=== PATIENT | female | born 1945 | race African-American/Black ===

== ENCOUNTER 2025-02-24 11:21 | Outpatient (REF) | payer MEDICARE, MEDICAID, SELFPAY ==
[2025-02-24 12:52] LABS: MANUAL DIFF FLAG NO
[2025-02-24 13:42] LABS: Hematocrit 40.5 % (37.0-47.0); Hemoglobin 12.9 g/dl (12.0-16.0); Imm Gran Abs Auto 0.02 X10*3/uL (0.00-0.03); Imm Gran Pct Auto 0.3 % (0.0-0.4); Lymphocytes Absolute Auto 2.4 X10*3/uL (1.2-4.9); Mean Corpuscular HGB Conc 31.9 g/dl (31.0-35.0); Mean Corpuscular Hemoglobin 27.9 pg (27.0-33.0); Mean Corpuscular Volume 87.7 fL (80.0-98.0); NRBC Abs Auto 0.000 X10*3/uL (0.0-0.012); NRBC Pct Auto 0.0 /100WBC (0.0-0.2); Platelet Count 275 X10*3/uL (160-400); Red Blood Count 4.62 X10*6/uL (4.20-5.50); White Blood Count 6.8 X10*3/uL (4.8-10.8)
[2025-02-24 14:30] LABS: Alanine Aminotransferase 12 U/L (0-31); Albumin Level 4.5 g/dL (3.5-5.0); Alkaline Phosphatase 66 U/L (39-117); Anion Gap 7 (12-20); Aspartate Amino Transferase 22 U/L (5-31); Blood Urea Nitrogen 13 mg/dL (9-16); Calcium 9.5 mg/dL (8.4-10.2); Carbon Dioxide 30 mmol/L (22-29); Chloride 111 mmol/L (96-108); Estimated Glomerular Filt Rate > 60; Magnesium 2.1 mg/dL (1.6-2.6); Potassium 3.4 mmol/L (3.3-5.1); Sodium 145 mmol/L (135-145); Total Protein 7.7 g/dL (6.5-8.0)
[2025-02-24 14:34] LABS: Microalbum/Creatinine Ratio Ur 10.4 ug/mg cr (<30)
[2025-02-26 14:06] LABS: Alcohol, Ethyl Urine Screen NEGATIVE
[2025-03-02 18:24] LABS: SM/Ribonucleoprotein Ab <1.0 NEG AI (<1.0 NEG); Smith Protein <1.0 NEG AI (<1.0 NEG)
[2025-03-04 14:49] LABS: Anti Nuclear Antibody Screen POSITIVE (NEGATIVE); Anti Nuclear Antibody Titer 1:40 titer
== END 2025-02-24 11:22 | disposition home or self-care (01) ==
LOC: HO.LAB 11:21
PROVIDERS: PCP Internal Medicine; Visit Provider Internal Medicine
DX: I10 Essential (primary) hypertension (principal); E03.9 Hypothyroidism, unspecified; M32.9 Systemic lupus erythematosus, unspecified; D64.9 Anemia, unspecified; I25.10 Atherosclerotic heart disease of native coronary artery without angina pectoris; R42 Dizziness and giddiness; F41.9 Anxiety disorder, unspecified; G47.00 Insomnia, unspecified; Z86.73 Personal history of transient ischemic attack (TIA), and cerebral infarction without residual deficits; Z51.81 Encounter for therapeutic drug level monitoring
CPT/HCPCS: 80053; 80307; 82043; 82570; 83735; 84443; 85025; 86038; 86039; 86225; 86235; 99212

== ENCOUNTER 2025-02-24 11:21 | Outpatient (AMB) | payer MEDICARE, MEDICAID, SELFPAY ==
--- NOTE | 2025-02-24 10:47 | MHC.PC.OV ---
Vital Signs 02/24/25 11:24 Height 5 ft 7.5 in Weight 132 lb 8 oz BMI 20.4 BP 104/60 Blood Pressure Location Lt brachial Position Sitting Respiration 16 Pulse 74 Pulse Source Pulse Oximeter Temp 97.4 F Temp Source Oral Pulse Oximetry (%) 98 Oxygen Delivery Method Room Air Intake Visit Reasons: follow up HTN, anxiety Bus Analyst Required: No Accompanied by: Self / Same As Patient Allergies No Known Allergies Allergy (Verified 02/24/25 11:26) Medication List - Last Reconciled 02/24/25 by Maine Quiroz MD amlodipine 5 mg PO DAILY apixaban (Eliquis) 5 mg PO BID Bacillus coagulans (Digestive Advantage Probiotic Gummy) 2 tabs PO DAILY dorzolamide-timolol 22.3-6.8 mg/mL 1 drp ophthalmic-Right BID levothyroxine mcg PO lisinopril 40 mg PO DAILY lorazepam 1 mg PO TID PRN meclizine 12.5 mg PO BID PRN metoprolol succinate ER 50 mg PO DAILY prednisolone acetate 1% 1 drp ophthalmic-Right DAILY temazepam 30 mg PO BEDTIME PRN Tobacco use date assessed: 02/24/25 Fall risk assessment: No Falls in past year Last assessed Fall Risk: 02/24/25 Dental Screening Dental Screen Date: 02/24/25 Did you have a dental visit in the last 12 months?: No Did you have a dental problem in the last 6 months where you did not have access to dental care?: No Was dental information given to patient?: Patient has dentist HPI HPI Comments History of Present Illness Details History of Present Illness The patient is a 79-year-old female presenting for follow-up and to reestablish care. She has a history of past cerebrovascular accident, CAD, hypothyroidism. Currently, her hypertension remains stable, managed with a consistent medication regimen. The patient experiences vertigo episodically, for which she uses meclizine at least once per day. Had severe episodes that required ENT evaluation and hospitalization in the past. She developed cellulitis of left ankle a few months prior and was treated at [facility] in December, symptoms improved after antibiotics. In terms of other medical problems the patient continues her administration of levothyroxine and the prior psychiatric regimen from her previous psychiatrist who has now retired. Her systemic lupus erythematosus is usually quiescent, used to see drawing hand Dr. Theodore. Care Team [facility] Cardiology Dr. Lockhart- ophthalmology Also has an eye prosthetic specialist in [facility] GI Review of Systems - Cardiovascular: Denies chest pain. - Respiratory: Denies shortness of breath. 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 - Musculoskeletal: no joint pain Physical Exam - General- No acute distress. - Eyes- Legally blind. - Cardiovascular- Normal S1 S2, soft murmur noted. - Chest- Clear auscultation bilaterally. - Abdominal- Soft, non-tender, non-distended, active bowel sounds. - Extremities- No edema noted. Assessment and Plan 1. Cerebrovascular Accident Manage with existing interventions and emphasize cardiovascular health. 2. Coronary Artery Disease Continue stable management, coordination with cardiology. 3. Essential Hypertension Controlled with current regimen, routine monitoring stressed. 4. Systemic Lupus Erythematosus Order specific antibody screenings; review rheumatologic stability. 5. Vertigo Use meclizine PRN and observe symptoms. 6. Hypothyroidism Maintain levothyroxine; assess thyroid levels regularly. 7. Anxiety and Insomnia Continue current medications; no alterations necessary. Contract signed, tox screen ordered. 8. Anemia check CBC and consider future treatment based on findings. Discussion Notes I discussed with the patient the importance of continued management of her chronic conditions. We reviewed her current regimen. We talked about observing her blood pressure and lupus stability. Patient Instructions - Keep taking your blood pressure medication as instructed. - Continue taking levothyroxine for your thyroid. - Use meclizine if your vertigo symptoms occur. - Get a CBC blood test to check for anemia. - Manage your anxiety and sleep as you have been - Observe any new symptoms or flare-ups in your lupus and report them. - Follow up with cardiology as scheduled [facility] Medical History (Updated 02/24/25 @ 15:26 by Maine Quiroz MD) Vertigo Hypothyroidism Heart attack Stroke Lupus Therapeutic drug monitoring Anemia Insomnia Anxiety Hypertension Surgical History (Updated 02/24/25 @ 14:44 by Maine Quiroz MD) H/O eye surgery History of dental surgery H/O hemicolectomy Social History Housing: Apartment Patient Tobacco Use Status: Former Tobacco user Years Smoked: quit smoking 07/04/2017, 20+ years smoked e-Cigarette/Vaping Use: Never Used service: No Current occupational status: retired and disabled Questionnaire AUDIT C Alcohol Use Questionnaire (AUDIT-C) 1. How often do you have a drink containing alcohol?: Never 3. How often do you have six or more drinks on one occasion?: Never Total Score: 0 Physical exam (Primary Care) Vital Signs: Last Vital Signs Temp 97.4 F 02/24/25 11:24 Pulse 74 02/24/25 11:24 Resp 16 02/24/25 11:24 BP 104/60 02/24/25 11:24 Pulse Ox 98 02/24/25 11:24 Oxygen Delivery Method Room Air 02/24/25 11:24 BMI result Body Mass Index 20.4 Tobacco/Smoking Status: Tobacco use Status Tobacco use date assessed 02/24/25 02/24/25 10:48 Patient Tobacco Use Status Former Tobacco user 02/24/25 11:32 e-Cigarette/Vaping Use Never Used 02/24/25 11:32 Coding Level of Care Code Est Pt Level 4 (60398) Complex EM visit Add On G2211 Diagnoses Acquired hypothyroidism E03.9 Hypothyroidism type: acquired Primary hypertension I10 Hypertension type: primary hypertension Lupus M32.9 Vertigo R42 Anemia, unspecified type D64.9 Anemia type: unspecified type Insomnia, unspecified type G47.00 Insomnia type: unspecified Anxiety F41.9 Assessment & Plan Assessment & Plan (1) Hypothyroidism: Code(s): E03.9 - Hypothyroidism, unspecified Category: Medical Qualifiers: Hypothyroidism type: acquired Qualified Code(s): E03.9 - Hypothyroidism, unspecified (2) Hypertension: Code(s): I10 - Essential (primary) hypertension Category: Medical Qualifiers: Hypertension type: primary hypertension Qualified Code(s): I10 - Essential (primary) hypertension (3) Lupus: Code(s): M32.9 - Systemic lupus erythematosus, unspecified Category: Medical (4) Vertigo: Code(s): R42 - Dizziness and giddiness Category: Medical (5) Anemia: Code(s): D64.9 - Anemia, unspecified Category: Medical Qualifiers: Anemia type: unspecified type Qualified Code(s): D64.9 - Anemia, unspecified (6) Insomnia: Code(s): G47.00 - Insomnia, unspecified Category: Medical Qualifiers: Insomnia type: unspecified Qualified Code(s): G47.00 - Insomnia, unspecified (7) Anxiety: Code(s): F41.9 - Anxiety disorder, unspecified Category: Medical Plan The patient will follow her treatment regimen for her diagnosed conditions, with levothyroxine for her hypothyroidism , ongoing use of meclizine for vertigo. We will continue monitoring her chronic diseases, ensuring stable management of hypertension and coronary artery disease in conjunction with nylon machine operator. Will obtain detailed medical records to review any pending preventive screening gaps. Orders: Orders Complete Blood Count Auto Diff Today D64.9 - Anemia, unspecified Magnesium Today I10 - Essential (primary) hypertension Opiate Screen Urine Today Z51.81 - Encounter for therapeutic drug level monitoring Alcohol, Ethyl Urine Screen Today Z51.81 - Encounter for therapeutic drug level monitoring Sm Sm/CUTTER OPERATOR Antibodies Today M32.9 - Systemic lupus erythematosus, unspecified Comprehensive Met. Panel Today I10 - Essential (primary) hypertension Microalbumin, Random (w Creat) Today I10 - Essential (primary) hypertension Benzodiazepines Screen Urine Today Z51.81 - Encounter for therapeutic drug level monitoring Cocaine Screen Urine Today Z51.81 - Encounter for therapeutic drug level monitoring Anti DNA DS Antibody Today M32.9 - Systemic lupus erythematosus, unspecified RICCARDO Reflex Titer and Pattern Today M32.9 - Systemic lupus erythematosus, unspecified TSH reflex Free T4 Today E03.9 - Hypothyroidism, unspecified
[2025-02-24 11:24] VITALS: BP 104/60; PULSE 74; RESP 16; TEMP 36.3; O2SAT 98; BMI 20.4
--- OUTSIDE RECORDS SUMMARY | 2025-02-24 15:36 | XMS_ITS | Clinical Summary ---
Author Organization [address] [place] [address] [place] [phone] Phone Care Team Providers Care Hammerer Tab Name Role Phone Maine Quiroz MD Primary Care Provider [phone] Allergies Active Allergy Reactions Criticality Noted Date Comments Loratadine 02/21/2024 Medications acetaminophen (TYLENOL) 500 mg capsule Take 1 capsule (500 mg total) by mouth. Active prednisoln jk-ehfbnedk-zmm mfen 1-0.5-0.075 % drops apply to the eye. Active metoprolol succinate (TOPROL-XL) 50 mg 24 hr tablet Take 1 Tablet by mouth daily. In the am Active temazepam (RESTORIL) 15 mg capsule Take by mouth 2 Times Daily. Active levothyroxine sodium (TIROSINT) 75 mcg capsule Take by mouth daily. Active LORazepam (ATIVAN) 1 mg tablet Take 1 tablet (1 mg total) by mouth every 6 (six) hours if needed. Active meclizine (ANTIVERT) 12.5 mg tablet Take by mouth 3 times daily. Active lisinopril (PRINIVIL,ZESTR IL) 40 mg tablet Take 1 tablet (40 mg total) by mouth 1 (one) time each day. Active timolol/dorzola mide/latanop/PF (timoloL-dorzol amid-latanop,PF ,) 0.5-2-0.005 % drops apply to the eye. Active Eliquis 5 mg tablet TAKE 1 TABLET BY MOUTH TWICE A DAY 180 tablet 1 11/12/2024 Active methocarbamoL (ROBAXIN) 500 mg tablet Take 1 tablet (500 mg total) by mouth 2 (two) times a day for 10 days. 20 tablet 12/18/2024 Active amLODIPine (NORVASC) 5 mg tablet TAKE 1 TABLET BY MOUTH EVERY DAY 90 tablet 3 12/30/2024 Active Active Problems Problem Noted Date Diagnosed Date Paroxysmal atrial fibrillation ([facility] V24, [facility] V28) 02/22/2023 Aneurysm of ascending aorta without rupture ([facility] V24) 02/22/2023 Takotsubo cardiomyopathy 02/19/2022 Overview (03/30/2024): Last Assessment & Plan: -LVEF of 30-35% on echo nonobstructive minimal coronary atherosclerosis on heart catheterization, normalized to 55% on echo from December 2019 -continue lisinopril -She will continue Eliquis 5 mg twice daily for now given her concomitant cardiomyopathy and CVA. It is likely that she had a cardioembolic event causing this although that has yet to be identified. There is no evidence of atrial fibrillation during hospitalizations or evidence of a thrombus in LV on echocardiogram. Primary hypertension 02/19/2022 Overview (03/30/2024): Last Assessment & Plan: 140/80, moderately elevated. Seeing PCP next week and will adjust therapies if she remains elevated. Aortic aneurysm ([facility] V24) 02/19/2022 Overview (03/30/2024): Last Assessment & Plan: -ascending aorta of 4.1 cm -will repeat echo, BP needs to be controlled Encounters Date Type Department Care Team Description 12/18/2024 1:43 PM EDT - 12/18/2024 4:39 PM EDT Emergency [facility] [address] [place] [address] Sj Rodriguez MD Cellulitis of left lower leg (Primary Dx) Discharge Disposition: Home or Self Care from Last 3 Months Medical History Medical History Date Comments Arthritis Social History Tobacco Use Types Packs/Day Years Used Date Smoking Tobacco: Former Smokeless Tobacco: Never Tobacco Cessation:Counseling Given: Not Answered Alcohol Use Standard Drinks/Week Comments Not Currently 0 (1 standard drink = 0.6 oz pur e alcohol) Comments Unknown Sex and Gender Information Value Date Recorded Sex Assigned at Not on file Legal Sex Female 12:49 PM EST Gender Identity Not on file Sexual Orientation Not on file Obstetrics History Last Filed Vital Signs Vital Sign Reading Time Taken Comments Blood Pressure 120/88 12/18/2024 2:04 PM EDT Pulse 88 12/18/2024 2:04 PM EDT Temperature 36.6 C (97.9 F) 12/18/2024 2:04 PM EDT Respiratory Rate 20 12/18/2024 2:04 PM EDT Oxygen Saturation 99% 12/18/2024 2:04 PM EDT Inhaled Oxygen Concentration - - Weight 59 kg (130 lb) 12/18/2024 11:55 AM EDT Height 167.6 cm (5' 6 ) 12/18/2024 11:55 AM EDT Body Mass Index 20.98 12/18/2024 11:55 AM EDT Plan of Treatment Health Maintenance Due Date Last Done Comments DTaP,Tdap,and Td Vaccines (1 - Tdap) 1966 Pneumococcal Vaccine: 50+ Years (1 of 1 - PCV) 1997 Zoster Vaccines (1 of 2) 1997 Cholesterol Screening (Lipid Panel) 04/03/2022 Falls Risk Assessment 04/03/2022 Hepatitis C Screening 04/03/2022 Osteoporosis Screening (Bone Density Screening) 04/03/2022 Social Influencers of Health Screening 04/03/2022 RSV Immunization Adult Patients (1 - 1-dose 75+ series) 2022 Medicare Annual Wellness Visit 08/30/2023 08/29/2022 Depression Screening 05/06/2024 COVID-19 Vaccine ( season) 2025 02/28/2024, 08/29/2021, 02/07/2021, Additional history exists Influenza Vaccine (#1) 2025 Hypertension/CHF/CAD Annual BMP Blood Test 12/18/2025 12/18/2024 HIB Vaccines Aged Out No longer eligi ble based on patient's age to complete this topic HPV Vaccines Aged Out No longer eligi ble based on patient's age to complete this topic Hepatitis A Vaccines Aged Out No long er eligible based on patient's age to complete this topic Hepatitis B Vaccines Aged Out No long er eligible based on patient's age to complete this topic IPV Vaccines Aged Out No longer eligi ble based on patient's age to complete this topic MMR Vaccines Aged Out No longer eligi ble based on patient's age to complete this topic Meningococcal ACWY Vaccine Aged Out N o longer eligible based on patient's age to complete this topic Meningococcal B Vaccine Aged Out No l onger eligible based on patient's age to complete this topic RSV Immunization Patients Under 20 months Aged Out No longer eligible based on patient's age to complete this topic Varicella Vaccines Aged Out No longer eligible based on patient's age to complete this topic Procedures Procedure Name Priority Date/Time Associated Diagnosis Comments CT PELVIS W CONTRAST STAT 12/18/2024 2:35 PM EDT CBC WITH AUTO DIFFERENTIAL STAT 12/18/2024 12:03 PM EDT ACTIVATED PARTIAL THROMBOPLASTIN TIME STAT 12/18/2024 12:03 PM EDT PROTHROMBIN TIME WITH INR STAT 12/18/2024 12:03 PM EDT CBC AND DIFFERENTIAL STAT 12/18/2024 12:03 PM EDT MAGNESIUM STAT 12/18/2024 12:03 PM EDT COMPREHENSIVE METABOLIC PANEL STAT 12/18/2024 12:03 PM EDT from Last 3 Months Results * CT Pelvis w Contrast (12/18/2024 2:35 PM EDT) Anatomical Region Laterality Modality Body, Pelvis Computed Tomogra phy 12/18/2024 2:51 PM EDT Impressions 12/18/2024 3:02 PM EDT Left inguinal region cellulitis with prominent bilateral pelvic and inguinal lymph nodes, likely reactive. No abscess. -------- FINAL REPORT -------- Dictated By: EPI LOU Dictated Date: 12/18/2024 14:51 ET Assigned Physician: EPI LOU Reviewed and Electronically Signed By: EPI LOU Signed Date: 12/18/2024 15:02 ET Workstation ID: [id number] Transcribed By: Self Edit Transcribed Date: 12/18/2024 14:51 ET Narrative 12/18/2024 3:02 PM EDT PROCEDURE: CT pelvis INDICATION: Lymphadenopathy TECHNIQUE: CT of the abdomen and pelvis following the intravenous administration of 90cc Isovue 370. Multiplanar reformats. The examination was performed utilizing dose reduction techniques. Total DLP 354 COMPARISON: No priors available. FINDINGS: There is skin thickening and subcutaneous edema in the left inguinal region. There are several prominent lymph nodes in the left inguinal region which are likely reactive. Bilateral pelvic sidewall lymph nodes measure 12 mm short axis in the right and 10 mm short axis on the left. No fluid collections. Major vascular structures opacify normally with contrast. Contrast seen within the distal ureters and bladder. Colonic diverticulosis. Uterus and adnexal structures are normal. Visualized intra-abdominal structures are within normal limits noting prior surgical anastomosis at the small bowel in the right midabdomen. No ascites or fluid collection. No acute fracture. Procedure Note Epi Lou MD - 12/18/2024 PROCEDURE: CT pelvis INDICATION: Lymphadenopathy TECHNIQUE: CT of the abdomen and pelvis following the intravenousadministration of 90cc Isovue 370. Multiplanar reformats. The examinationwas performed utilizing dose reduction techniques. Total DLP 354 COMPARISON: No priors available. FINDINGS: There is skin thickening and subcutaneous edema in the left inguinalregion. There are several prominent lymph nodes in the left inguinalregion which are likely reactive. Bilateral pelvic sidewall lymph nodesmeasure 12 mm short axis in the right and 10 mm short axis on the left.No fluid collections. Major vascular structures opacify normally with contrast. Contrast seen within the distal ureters and bladder. Colonic diverticulosis. Uterus and adnexal structures are normal. Visualized intra-abdominal structures are within normal limits notingprior surgical anastomosis at the small bowel in the right midabdomen. Noascites or fluid collection. No acute fracture. IMPRESSION: Left inguinal region cellulitis with prominent bilateral pelvic andinguinal lymph nodes, likely reactive. No abscess. -------- FINAL REPORT -------- Dictated By: EPI LOU Dictated Date: 12/18/2024 14:51 ET Assigned Physician: EPI LOU Reviewed and Electronically Signed By: EPI LOU Signed Date: 12/18/2024 15:02 ET Workstation ID: [id number] Transcribed By: Self Edit Transcribed Date: 12/18/2024 14:51 ET Sj Rodriguez MD IM CT PROCEDURES Final Result * (ABNORMAL) CBC auto differential (12/18/2024 12:03 PM EDT) WBC 15.8(H) 4.8 - 10.8 K/mcL LAB HEMETOLOGY METHOD 12/18/2024 12:24 PM EDT [facility] RBC 4.60 3.80 - 4.80 M/mcL LAB HEMETOLOGY METHOD 12/18/2024 12:24 PM EDT [facility] Hemoglobin 12.6 11.5 - 16.0 g/dL LAB HEMETOLOGY METHOD 12/18/2024 12:24 PM EDT [facility] Hematocrit 39.4 35.0 - 47.0 % LAB HEMETOLOGY METHOD 12/18/2024 12:24 PM EDT [facility] MCV 86.6 79.0 - 98.0 FL LAB HEMETOLOGY METHOD 12/18/2024 12:24 PM EDT [facility] MCH 27.7 27.0 - 32.0 pcg LAB HEMETOLOGY METHOD 12/18/2024 12:24 PM EDT [facility] MCHC 32.0 32.0 - 37.0 g/dL LAB HEMETOLOGY METHOD 12/18/2024 12:24 PM [facility] RDW 14.3 11.0 - 15.0 % LAB HEMETOLOGY METHOD 12/18/2024 12:24 PM T [facility] Platelets 255 130 - 400 K/mcL LAB HEMETOLOGY METHOD 12/18/2024 12:24 PM EDT [facility] MPV 9.9 7.0 - 11.0 FL LAB HEMETOLOGY METHOD 12/18/2024 12:24 PM [facility] NRBC 0.0 <1.0 % LAB [facility] NR[facility] Absolute 0.00 <0.10 K/mcL LAB HEMETOLOGY METHOD 12/18/2024 12:24 PM [facility] Neutrophils Relative 78.3 % LAB HEMETOLOGY METHOD 12/18/2024 12:24 PM [facility] Lymphocytes Relative 12.7 % LAB HEMETOLOGY METHOD 12/18/2024 12:24 PM [facility] Monocytes Relative 8.2 % LAB HEMETOLOGY METHOD 12/18/2024 12:24 PM [facility] Eosinophils Relative 0.1 % LAB HEMETOLOGY METHOD 12/18/2024 12:24 PM [facility] Basophils Relative 0.3 % LAB HEMETOLOGY METHOD 12/18/2024 12:24 PM [facility] Immature Granulocytes Relative 0.4 % LAB HEMETOLOGY METHOD 12/18/2024 12:24 PM [facility] Neutrophils Absolute 12.35(H) 1.50 - 7.00 K/mcL LAB HEMETOLOGY METHOD 12/18/2024 12:24 PM [facility] Lymphocytes Absolute 2.00 1.00 - 5.00 K/mcL LAB HEMETOLOGY METHOD 12/18/2024 12:24 PM [facility] Monocytes Absolute 1.30(H) 0.20 - 1.00 K/mcL LAB HEMETOLOGY METHOD 12/18/2024 12:24 PM [facility] Eosinophils Absolute 0.01 0.00 - 0.50 K/[facility] LAB HEMETOLOGY METHOD 12/18/2024 12:24 PM EDT [facility] Basophils Absolute 0.05 0.00 - 0.20 K/[facility] LAB HEMETOLOGY METHOD 12/18/2024 12:24 PM EDT [facility] Immature Granulocytes Absolute 0.07(H) 0.00 - 0.03 K/[facility] LAB HEMETOLOGY METHOD 12/18/2024 12:24 PM EDT [facility] Blood Venous blood specimen / Unknown Venipuncture / Unknown 12/18/2024 12:03 PM EDT 12/18/2024 12:09 PM EDT Sj Rodriguez MD LAB BLOOD ORDERABLES Final Resul t Performing Organization Address [facility]/ZIP Co de Phone Number [facility] [address] [place] [address], [place] [phone] * APTT (12/18/2024 12:03 PM EDT) aPTT 35.8 24.1 - 39.3 sec LAB COAGULATION METHOD 12/18/2024 12:31 PM EDT [facility] Blood Venous blood specimen / Unknown Venipuncture / Unknown 12/18/2024 12:03 PM EDT 12/18/2024 12:09 PM EDT Sj Rodriguez MD LAB BLOOD ORDERABLES Final Resul t Performing Organization Address City/[facility]/ZIP Co de Phone Number [facility] [address] [place] [address], [place] [phone] * (ABNORMAL) Protime-INR (12/18/2024 12:03 PM EDT) Protime 15.7(H) 10.6 - 13.9 sec LAB COAGULATION METHOD 12/18/2024 12:31 PM EDT [facility] INR 1.3 LAB COAGULATION METHOD 12/18/2024 12:31 PM EDT [facility] Blood Venous blood specimen / Unknown Venipuncture / Unknown 12/18/2024 12:03 PM EDT 12/18/2024 12:09 PM EDT Sj Rodriguez MD LAB BLOOD ORDERABLES Final Resul t Performing Organization Address City/[facility]/ZIP Co de Phone Number [facility] [address] [place] [address], [place] [phone] * Magnesium (12/18/2024 12:03 PM EDT) Pathologist [facility] Magnesium 1.9 1.9 - 2.6 mg/dL LAB CHEMISTRY METHOD 12/18/2024 12:40 PM EDT [facility] Blood Venous blood specimen / Unknown Venipuncture / Unknown 12/18/2024 12:03 PM EDT 12/18/2024 12:09 PM EDT Sj Rodriguez MD LAB BLOOD ORDERABLES Final Resul t Performing Organization Address [facility]/ZIP Co de Phone Number [facility] [address] [place] [address], [place] [phone] * (ABNORMAL) Comprehensive Metabolic Panel (CMP) (12/18/2024 12:03 PM EDT) Sodium 139 133 - 145 mmol/L LAB CHEMISTRY METHOD 12/18/2024 12:40 PM EDT [facility] Potassium 3.3(L) 3.5 - 5.5 mmol/L LAB CHEMISTRY METHOD 12/18/2024 12:40 PM EDT [facility] Chloride 105 96 - 110 mmol/L LAB CHEMISTRY METHOD 12/18/2024 12:40 PM EDT [facility] CO2 27 21 - 32 mmol/L LAB CHEMISTRY METHOD 12/18/2024 12:40 PM [facility] Anion Gap 7 3 - 11 LAB CHEMISTRY METHOD 12/18/2024 12:40 PM [facility] Glucose 107(H) 70 - 100 mg/dL LAB CHEMISTRY METHOD 12/18/2024 12:40 PM [facility] BUN 6 5 - 25 mg/dL LAB CHEMISTRY METHOD 12/18/2024 12:40 PM [facility] Creatinine 0.98 0.50 - 1.10 mg/dL LAB CHEMISTRY METHOD 12/18/2024 12:40 PM [facility] eGFR 60 >=60 mL/min/1. 73m2 LAB CHEMISTRY METHOD 12/18/2024 12:40 PM [facility] Comment:Calculation based on the Chronic Kidney Disease Epidemiology Collaboration (CKD-EPI) equation refit without adjustment for race. BUN/Creatinine Ratio 6.1 LAB CHEMISTRY METHOD 12/18/2024 12:40 PM [facility] Calcium 9.0 8.5 - 10.5 mg/dL LAB CHEMISTRY METHOD 12/18/2024 12:40 PM [facility] AST (SGOT) 13 10 - 42 unit/L LAB CHEMISTRY METHOD 12/18/2024 12:40 PM [facility] ALT (SGPT) 12 10 - 60 unit/L LAB CHEMISTRY METHOD 12/18/2024 12:40 PM [facility] Alkaline Phosphatase 80 42 - 121 unit/L LAB CHEMISTRY METHOD 12/18/2024 12:40 PM [facility] Total Protein 7.5 6.0 - 8.0 g/dL LAB CHEMISTRY METHOD 12/18/2024 12:40 PM [facility] Albumin 3.7 3.2 - 5.0 g/dL LAB CHEMISTRY METHOD 12/18/2024 12:40 PM [facility] Total Bilirubin 1.7(H) 0.0 - 1.4 mg/dL LAB CHEMISTRY METHOD 12/18/2024 12:40 PM EDT [facility] ([facility]) [facility] Blood Venous blood specimen / Unknown Venipuncture / Unknown 12/18/2024 12:03 PM EDT 12/18/2024 12:09 PM EDT us Sj Rodriguez MD LAB BLOOD ORDERABLES Final Resul t [facility] ([facility]) [facility] [address] [place] [address], [place] [phone] from Last 3 Months Insurance MEDICARE MEDICAID - [place] Care Teams Hammerer Tab Relationship Specialty Start Date End Date Maine Quiroz MD [address] [place] [address] PCP - General 12/15/18
== END 2025-02-24 12:38 | disposition home or self-care (01) ==
LOC: HO.HMCHD 11:22
PROVIDERS: PCP Internal Medicine; Visit Provider Internal Medicine
DX: E03.9 Hypothyroidism, unspecified (principal); I10 Essential (primary) hypertension; M32.9 Systemic lupus erythematosus, unspecified; R42 Dizziness and giddiness; D64.9 Anemia, unspecified; G47.00 Insomnia, unspecified; F41.9 Anxiety disorder, unspecified